=== PATIENT | male | born 1940 | race Caucasian/White ===

== ENCOUNTER 2019-06-28 20:23 | Emergency (ER) | payer MEDICARE ==
[2019-06-28 21:33] VITALS: BP 148/77; PULSE 88; RESP 18; TEMP 96.8
[2019-06-28 21:43] LABS: Appearance,Urine Cloudy (Clear); Bilirubin,Urine Negative (Negative); Blood,Urine Large (Negative); Budding Yeast,Urine Many /hpf; Color,Urine Light Red; Glucose,Urine (UA) 4+ (Negative); Leukocyte Esterase,Urine Large (Negative); Nitrite,Urine Negative (Negative); PH, Urine 5.5 (5.0-8.0); Protein,Urine 1+ (Negative); RBC,Urine >182 /hpf (0-5); Specific Gravity,Urine 1.023 (1.001-1.035); Urobilinogen,Urine <2.0 mg/dL (<2.0); WBC,Urine >182 /hpf (0-5)
--- NOTE | 2019-06-28 21:52 | ED ---
General Adult HPI - General Chief complaint: Urogenital Stated complaint: Urogenital Time Seen by Provider: 06/28/19 20:39 Source: patient Mode of arrival: ambulatory Limitations: no limitations - History of Present Illness Initial comments: Patient is a 78-year-old male presenting to the emergency department with a chief complaint of catheter malfunction. Patient is a day 30 status post prostate surgery. Patient reports he was at his urologist office yesterday when he had a replacement of his Kraft catheter. Patient also reports the found a mild UTI and treated him with IV and antibiotics. Patient reports he had no urine output since last night. Patient reports decreased pain in his penis and bladder region. Patient reports he noticed small amount to urinary dripping around the catheter out of the urethra. Patient reports he has not been drinking any fluids in order to prevent further urine production. Patient denies any fever or chills. Patient reports typically the urine is red in color. - Related Data Allergies Allergy/AdvReac Type Severity Reaction Status Date / Time No Known Allergies Allergy Verified 06/28/19 20:30 Review of Systems ROS Statement: Those systems with pertinent positive or pertinent negative responses have been documented in the HPI. ROS Other: All systems not noted in ROS Statement are negative. Past Medical History Past Medical History: Prostate Disorder History of Any Multi-Drug Resistant Organisms: None Reported Past Surgical History: Prostate Surgery Past Psychological History: No Psychological Hx Reported Smoking Status: Never smoker Past Alcohol Use History: None Reported Past Drug Use History: None Reported General Exam Limitations: no limitations General appearance: alert, in distress, obese Head exam: Present: atraumatic, normocephalic, normal inspection Eye exam: Present: normal appearance Pupils: Present: normal accommodation ENT exam: Present: normal exam, mucous membranes moist, normal external ear exam Neck exam: Present: normal inspection, full ROM Respiratory exam: Present: normal lung sounds bilaterally Cardiovascular Exam: Present: normal rhythm, tachycardia, normal heart sounds GI/Abdominal exam: Present: soft, tenderness (Suprapubic tenderness.) exam: Present: normal inspection. Absent: scrotal swelling Extremities exam: Present: normal inspection, full ROM Back exam: Present: normal inspection, full ROM. Absent: CVA tenderness (R), CVA tenderness (L) Neurological exam: Present: alert, oriented X3 Psychiatric exam: Present: normal affect, normal mood Skin exam: Present: warm, intact, normal color Course Vital Signs 10/20/19 10/20/19 20:28 21:32 Temperature 97.6 F 96.8 F L Pulse Rate 116 H 88 Respiratory 30 H 18 Rate Blood Pressure 203/88 148/77 O2 Sat by Pulse 96 98 Oximetry Medical Decision Making - Medical Decision Making Patient is a 78-year-old male presenting to the emergency department with a lobo f complaint of catheter malfunction. On initial evaluation patient was in distress and a lot of pain due to urinary retention. All catheter was removed and patient was able to expel a clot. Patient had a continuous stream of urine. Postvoid bladder scan is indicative of 29 mL of urine. Patient reports his pain went from a 10 to a 1. Patient reports much relief and is ready go home. UA is indicative of hematuria, a little of blood cell leukocyte esterase. Considering the patient had IV antibiotics yesterday for a UTI and is going to see the urologist tomorrow morning, I'm not going to treat the patient for UTI at this time. No replacement of the Kraft catheter necessary at this time. Patient has a ready a scheduled appointment with urology tomorrow. Strict return parameters were thoroughly discussed with patient was understanding and agreeable. Case discussed physician. - Lab Data Lab Results 06/28/19 Range/Units 20:51 Urine Color Light Red Urine Appearance Cloudy (Clear) Urine pH 5.5 (5.0-8.0) Ur Specific [place] 1.023 (1.001-1.035) Urine Protein 1+ H (Negative) Urine Glucose (UA) 4+ H (Negative) Urine Ketones 2+ H (Negative) Urine Blood Large H (Negative) Urine Nitrite Negative (Negative) Urine Bilirubin Negative (Negative) Urine Urobilinogen <2.0 (<2.0) mg/dL Ur Leukocyte Esterase Large H (Negative) Urine RBC >182 H (0-5) /hpf Urine WBC >182 H (0-5) /hpf Urine WBC Clumps Few H (None) /hpf Urine Yeast (Budding) Many H (None) /hpf Disposition Clinical Impression: Kraft catheter problem, Urinary retention Disposition: HOME SELF-CARE Condition: Stable Instructions (If sedation given, give patient instructions): Urinary Tract Infection in Men (ED) Additional Instructions: Please follow-up with your urologist tomorrow. Please return to emergency department if symptoms worsen. Continue drinking water. Is patient prescribed a controlled substance at d/c from ED?: No Referrals: Nonstaff,Physician [Primary Care Provider] - 1-2 days Time of Disposition: 21:52
[2019-06-28 22:00] LABS: Ketones,Urine 2+ (Negative)
== END 2019-06-28 21:57 | disposition home or self-care (01) ==
LOC: EC 20:23
DX: T83.018A Breakdown (mechanical) of other urinary catheter, initial encounter (principal); R33.9 Retention of urine, unspecified; N39.0 Urinary tract infection, site not specified; N42.9 Disorder of prostate, unspecified
CPT/HCPCS: 81001; 99284

== ENCOUNTER 2021-05-14 20:12 | Observation (INO) | payer MEDICARE ==
[2021-05-14] MEDS ORDERED: NITROGLYCERIN OINT 1 INCH/GM PACKET TOPICAL STA ×2 (20:30→21:28)
[2021-05-14] MEDS ORDERED: MORPHINE SULFATE 4 MG/ML SYRINGE IVP STA ×2 (20:30→21:28)
[2021-05-14] MEDS ORDERED: ASPIRIN 81 MG PO STA (20:30)
--- NOTE | 2021-05-14 20:30 | ED ---
Chest Pain HPI - General Chief Complaint: Chest Pain Stated Complaint: chest pain,SOB Time Seen by Provider: 05/14/21 20:29 Source: patient Mode of arrival: ambulatory Limitations: no limitations - History of Present Illness Initial Comments: Lalo is a 80 rolled male presents the ER today for evaluation of stabbing left- sided chest pain. Patient reports he had episodes of pain yesterday and then recurrently throughout the day today. Patient reports the pain is sharp stabbing located in the left chest lateral to the sternum. Pain does not radiate. Patient has chronic shortness of breath which is been present for approximately one month. No acute worsening shortness breath. No lightheadedness or diaphoresis. Patient denies any cardiac history but reports a strong family history of cardiac disease. - Related Data Home Medications Medication Instructions Recorded Confirmed Clobetasol Cream ([place] Strength) 1 applic TOPICAL DIRECTED 05/14/21 05/14/21 Finasteride [Proscar] 5 mg PO HS 05/14/21 05/14/21 Hydrocortisone Cream ([place] Stren 1 applic TOPICAL DIRECTED 05/14/21 05/14/21 Ibuprofen [Motrin Ib] 800 mg PO Q8H PRN 05/14/21 05/14/21 Simvastatin [Zocor] 40 mg PO HS 05/14/21 05/14/21 Tamsulosin HCl [Flomax] 0.4 mg PO HS 05/14/21 05/14/21 Triamcinolone Cream ([place] Streng 1 applic TOPICAL DIRECTED 05/14/21 05/14/21 amLODIPine [Norvasc] 5 mg PO HS 05/14/21 05/14/21 lisinopriL 20 mg PO HS 05/14/21 05/14/21 Allergies Allergy/AdvReac Type Severity Reaction Status Date / Time No Known Allergies Allergy Verified 05/14/21 21:12 Review of Systems ROS Statement: Those systems with pertinent positive or pertinent negative responses have been documented in the HPI. ROS Other: All systems not noted in ROS Statement are negative. EKG Findings - EKG Comments: EKG Findings:: Initial EKG obtained at 2024, rate is 88 rhythm is sinus there is a normal axis and normal intervals, ID 192 QRS 96 QTC [address] depressions laterally no acute ST elevations no evidence of acute infarction. EKG was obtained because patient was expressing chest pain. Repeat EKG obtained at 2122, rate is 80 rhythm is sinus there is normal axis, normal intervals, ID 206 QRS 92 QTc 438 there are no acute ST elevations mild depressions in V4 no elevations no evidence of acute infarction. Past Medical History Past Medical History: Prostate Disorder History of Any Multi-Drug Resistant Organisms: None Reported Past Surgical History: Prostate Surgery Past Psychological History: No Psychological Hx Reported Smoking Status: Never smoker Past Alcohol Use History: None Reported Past Drug Use History: None Reported General Exam - General Exam Comments Initial Comments: Physical Exam GENERAL: Patient is well-developed and well-nourished. Patient is nontoxic and well- hydrated and is in no distress. HENT: Normocephalic, Atraumatic. EYES: PERRL, EOMI PULMONARY: Unlabored respirations. No audible rales rhonchi or wheezing was noted. CARDIOVASCULAR: There is a regular rate and rhythm without any murmurs gallops or rubs. ABDOMEN: Soft and nontender with normal bowel sounds. SKIN: Skin is clear with no lesions or rashes and otherwise unremarkable. : Deferred NEUROLOGIC: Patient is alert and oriented x3. Moving all extremities spontaneously MUSCULOSKELETAL: Normal extremities with adequate strength and full range of motion. No lower extremity swelling or edema. No calf tenderness. PSYCHIATRIC: Normal psychiatric evaluation. Limitations: no limitations Course Vital Signs 05/14/21 05/14/21 05/14/21 20:19 20:52 21:15 Temperature 98.1 F Pulse Rate 87 81 79 Respiratory 18 18 18 Rate Blood Pressure 191/79 178/80 192/84 O2 Sat by Pulse 96 95 97 Oximetry 05/14/21 05/14/21 21:52 23:00 Temperature Pulse Rate 78 75 Respiratory 18 18 Rate Blood Pressure 151/68 143/71 O2 Sat by Pulse Oximetry Chest Pain MDM - MDM Seen and evaluated, history is obtained from the patient, 80-year-old male with sharp left-sided chest pain EKG is nonischemic labs and imaging were obtained and were unremarkable. Patient did have episodes of pain while in the emergency department. Repeat EKG was obtained while patient was having pain and there is no ischemic findings. Patient was noted to have elevated blood pressure during findings of hypertension. Blood pressure normalized with Nitropaste pain seemed to be improved. At this time concerning patient's advanced age, chest pain improving with nitro decision was made to admit the patient to the hospital for further evaluation by cardiology. Patient is agreeable to this plan. Patient was admitted to Dr. Stewart. - VIVI Score Age > 65: (1) Yes 3 or more CAD Risk Factors: (1) Yes Known CAD with more than 50% Stenosis: (0) No Aspirin use within the Past 7 Days: (0) No Elevated Cardiac Markers: (0) No ST Deviation Greater than 0.5mm: (0) No Disposition Clinical Impression: Chest pain, HTN (hypertension) Disposition: ADMITTED IP TO THIS HOSP Condition: Stable Is patient prescribed a controlled substance at d/c from ED?: No
[2021-05-14 21:00] LABS: Basophils # (A) 0.1 k/uL (0-0.2); Basophils % (A) 1 %; Eosinophils # (A) 0.2 k/uL (0-0.7); Eosinophils % (A) 2 %; HCT 43.5 % (39.0-53.0); HGB 15.4 gm/dL (13.0-17.5); Lymphocytes # (A) 4.4 k/uL (1.0-4.8); Lymphocytes % (A) 36 %; MCH 31.4 pg (25.0-35.0); MCHC 35.5 g/dL (31.0-37.0); MCV 88.5 fL (80.0-100.0); Mean Platelet Volume 8.2; Monocytes # (A) 0.7 k/uL (0-1.0); Monocytes % (A) 6 %; Neutrophils # (A) 6.6 k/uL (1.3-7.7); Neutrophils % (A) 53 %; Platelet Count 344 k/uL (150-450); RBC 4.91 m/uL (4.30-5.90); WBC 12.4 k/uL (3.8-10.6)
--- NOTE | 2021-05-14 21:09 | XR ---
EXAMINATION TYPE: XR chest 2V DATE OF EXAM: 05/14/2021 COMPARISON: NONE HISTORY: Chest pain TECHNIQUE: 2 views FINDINGS: Heart and mediastinum are normal. Lungs are clear. Diaphragm is normal. Bony thorax appears normal. IMPRESSION: Normal chest.
[2021-05-14 21:28] LABS: Albumin 4.1 g/dL (3.5-5.0); Calcium 9.9 mg/dL (8.4-10.2); Total Bilirubin 0.4 mg/dL (0.2-1.3); Total Protein 7.4 g/dL (6.3-8.2)
[2021-05-14 21:49] LABS: Potassium 4.6 mmol/L (3.5-5.1)
[2021-05-14 22:01] LABS: INR 0.9 (<1.2); Partial Thromboplastin Time 22.1 sec (22.0-30.0); Prothrombin Time 9.7 sec (9.0-12.0)
[2021-05-14] MEDS ORDERED: NITROGLYCERIN SL TABS 0.4 MG TAB SUBLINGUAL PRN (23:23)
[2021-05-15 00:25] LABS: Glucose,Whole Blood 213 mg/dL (75-99)
[2021-05-15 07:19] LABS: Glucose,Whole Blood 208 mg/dL (75-99)
[2021-05-15] MEDS: ASPIRIN 325 MG TAB PO SCH (08:14)
[2021-05-15 08:55] LABS: Basophils # (A) 0.1 k/uL (0-0.2); Basophils % (A) 1 %; Eosinophils # (A) 0.2 k/uL (0-0.7); Eosinophils % (A) 2 %; HCT 42.8 % (39.0-53.0); HGB 14.2 gm/dL (13.0-17.5); Lymphocytes # (A) 3.1 k/uL (1.0-4.8); Lymphocytes % (A) 30 %; MCH 29.7 pg (25.0-35.0); MCHC 33.2 g/dL (31.0-37.0); MCV 89.5 fL (80.0-100.0); Mean Platelet Volume 7.9; Monocytes # (A) 0.6 k/uL (0-1.0); Monocytes % (A) 6 %; Neutrophils # (A) 6.1 k/uL (1.3-7.7); Neutrophils % (A) 59 %; Platelet Count 286 k/uL (150-450); RBC 4.79 m/uL (4.30-5.90); RDW 13.2 % (11.5-15.5); WBC 10.4 k/uL (3.8-10.6)
[2021-05-15] MEDS ORDERED: FAMOTIDINE 20 MG/2 ML VIAL IV SCH (09:00)
[2021-05-15 09:16] LABS: LDL Cholesterol,Calculated 52.6 mg/dL (0.0-131.0); VLDL Calculation 41.4 mg/dL (5.00-40.00)
[2021-05-15] MEDS: HEPARIN SODIUM,PORCINE/PF 5,000 UNIT/0.5 ML SYRINGE SQ SCH ×2 (09:32→20:37)
[2021-05-15] MEDS: METOPROLOL TARTRATE 25 MG TAB PO SCH ×2 (09:32→20:36)
--- NOTE | 2021-05-15 09:42 | P.CRDCN ---
History of Present Illness Consult date: 05/15/21 History of present illness: This is a 80-year-old gentleman with history of hypertension, hypercholesteremia, and prostate problems, comes here for evaluation of recurrent chest pains. Patient has been having this pain for the last month or so. Yesterday patient was sitting in his chair in the evening, started having some poking and stabbing chest pain in the left side of the chest. Patient subsequently had his dinner and went to bed and continued to have this sharp stabbing chest pains. Patient was subsequently brought to the hospital by her daughter. Patient has been treated with nitroglycerin and morphine with some relief but still having some intermittent pains. EKG showed sinus rhythm without any acute changes. Cardiac enzymes have been negative. In view of his risk factor profile, patient is advised to have stress test and echocardiogram. He'll be scheduled for the Lexiscan stress test and echocardiogram tomorrow. Further recommendations depend upon findings on those tests Review of Systems As per the chart Past Medical History Past Medical History: Prostate Disorder History of Any Multi-Drug Resistant Organisms: None Reported Past Surgical History: Prostate Surgery Past Anesthesia/Blood Transfusion Reactions: No Reported Reaction Past Psychological History: No Psychological Hx Reported Smoking Status: Never smoker Past Alcohol Use History: None Reported Past Drug Use History: None Reported Medications and Allergies Home Medications Medication Instructions Recorded Confirmed Type Clobetasol Cream ([place] Strength) 1 applic TOPICAL DIRECTED 05/14/21 05/14/21 History Finasteride [Proscar] 5 mg PO HS 05/14/21 05/14/21 History Hydrocortisone Cream ([place] Stren 1 applic TOPICAL DIRECTED 05/14/21 05/14/21 History Ibuprofen [Motrin Ib] 800 mg PO Q8H PRN 05/14/21 05/14/21 History Simvastatin [Zocor] 40 mg PO HS 05/14/21 05/14/21 History Tamsulosin HCl [Flomax] 0.4 mg PO HS 05/14/21 05/14/21 History Triamcinolone Cream ([place] Streng 1 applic TOPICAL DIRECTED 05/14/21 05/14/21 History amLODIPine [Norvasc] 5 mg PO HS 05/14/21 05/14/21 History lisinopriL 20 mg PO HS 05/14/21 05/14/21 History Allergies Allergy/AdvReac Type Severity Reaction Status Date / Time No Known Allergies Allergy Verified 05/14/21 21:12 Physical Exam Vitals: Vital Signs Temp Pulse Pulse Resp BP BP Pulse Ox 05/15/21 07:00 97.8 F 72 18 159/68 93 L 05/15/21 02:00 74 05/15/21 00:33 97.9 F 74 18 173/67 97 05/14/21 23:00 75 18 143/71 05/14/21 21:52 78 18 151/68 05/14/21 21:15 79 18 192/84 97 05/14/21 20:52 81 18 178/80 95 05/14/21 20:19 98.1 F 87 18 191/79 96 Intake and Output 05/14/21 05/15/21 05/15/21 22:59 06:59 14:59 Output Total 200 Balance -200 Output: Urine 200 Other: # Voids 3 Weight 107.048 kg 107.048 kg GENERAL EXAM: Patient is alert and oriented and doesn't appear to be in any acute distress HEENT: Normocephalic. Normal reaction of pupils, equal size, normal range of extraocular motion. No erythema or exudates in the throat. NECK: No masses, no nuchal rigidity. CHEST: No chest wall deformity. LUNGS: Equal air entry with no crackles or wheeze. HEART: S1 and S2 normal with no audible mumurs or gallops. Regular rhythm, femorals equal on both sides.. ABDOMEN: No hepatosplenomegaly, normal bowel sounds, no guarding or rigidity. SKIN: No rashes CENTRAL NERVOUS SYSTEM: No focal deficits. EXTREMITIES: No cyanosis, clubbing or edema. Results 05/15/21 08:22 05/14/21 20:43 Cardiac Enzymes 05/14/21 05/14/21 05/14/21 Range/Units 20:43 20:43 23:43 AST 24 (17-59) U/L Troponin I <0.012 <0.012 (0.000-0.034) ng/mL 05/15/21 05/15/21 Range/Units 03:40 08:22 AST (17-59) U/L Troponin I <0.012 <0.012 (0.000-0.034) ng/mL Coagulation 05/14/21 Range/Units 20:43 PT 9.7 (9.0-12.0) sec APTT 22.1 (22.0-30.0) sec Lipids 05/15/21 Range/Units 03:40 Triglycerides 207.0 H (0.0-149.0) mg/dL Cholesterol 141 (0-200) mg/dL HDL Cholesterol 47.0 (40.0-60.0) mg/dL Cholesterol/HDL Ratio 3.00 CBC 05/14/21 05/15/21 Range/Units 20:43 08:22 WBC 12.4 H 10.4 (3.8-10.6) k/uL RBC 4.91 4.79 (4.30-5.90) m/uL Hgb 15.4 14.2 (13.0-17.5) gm/dL Hct 43.5 42.8 (39.0-53.0) % Plt Count 344 286 (150-450) k/uL Comprehensive Metabolic Panel 05/14/21 Range/Units 20:43 Sodium 135 L (137-145) mmol/L Potassium 4.6 (3.5-5.1) mmol/L Chloride 106 (98-107) mmol/L Carbon Dioxide 18 L (22-30) mmol/L BUN 31 H (9-20) mg/dL Creatinine 1.23 (0.66-1.25) mg/dL Glucose 324 H (74-99) mg/dL Calcium 9.9 (8.4-10.2) mg/dL AST 24 (17-59) U/L ALT 21 (4-49) U/L Alkaline Phosphatase 104 (38-126) U/L Total Protein 7.4 (6.3-8.2) g/dL Albumin 4.1 (3.5-5.0) g/dL Current Medications Generic Name Dose Route Start Last Admin Trade Name Freq PRN Reason Stop Dose Admin Aspirin 325 mg 05/15/21 09:00 05/15/21 08:14 Aspirin 325 Mg Tab PO 325 mg DAILY JOSÉ MIGUEL Administration Famotidine 20 mg 05/15/21 09:00 05/15/21 09:32 Famotidine 20 Mg/2 Ml Vial IV 20 mg Q12HR JOSÉ MIGUEL Administration Heparin Sodium (Porcine) 5,000 unit 05/15/21 09:00 05/15/21 09:32 Heparin Sodium,Porcine/Pf 5,000 Unit/0.5 Ml Syringe SQ 5,000 unit Q12HR JOSÉ MIGUEL Administration Metoprolol Tartrate 25 mg 05/15/21 09:00 05/15/21 09:32 Metoprolol Tartrate 25 Mg Tab PO 25 mg BID JOSÉ MIGUEL Administration Nitroglycerin 0.4 mg 05/14/21 23:23 Nitroglycerin Sl Tabs 0.4 Mg Tab SUBLINGUAL Q5M PRN Chest Pain Intake and Output 05/14/21 05/15/21 05/15/21 22:59 06:59 14:59 Output Total 200 Balance -200 Output: Urine 200 Other: # Voids 3 Weight 107.048 kg 107.048 kg 05/15/21 08:22 05/14/21 20:43 EKG Interpretations (text) Sinus rhythm Assessment and Plan (1) Hyperlipidemia Current Visit: Yes Status: Acute Code(s): E78.5 - HYPERLIPIDEMIA, UNSPECIFIED SNOMED Code(s): 95852530 (2) Chest pain Current Visit: Yes Status: Acute Code(s): R07.9 - CHEST PAIN, UNSPECIFIED SNOMED Code(s): 52995427 (3) HTN (hypertension) Current Visit: Yes Status: Acute Code(s): I10 - ESSENTIAL (PRIMARY) HYPERTENSION SNOMED Code(s): 51050498 (4) Prostate hypertrophy Current Visit: Yes Status: Acute Code(s): N40.0 - BENIGN PROSTATIC HYPERPLASIA WITHOUT LOWER URINRY TRACT SYMP SNOMED Code(s): 452385124 Plan: Continue beta blockers and aspirin. Continue rest of the medication. Patient is being scheduled for an echocardiogram and Lexiscan stress test tomorrow. Further recommendations depend upon the findings on those tests
[2021-05-15] MEDS ORDERED: REGADENOSON 0.4 MG/5 ML SYRINGE IV PRN (09:43)
[2021-05-15] MEDS ORDERED: CAFFEINE CITRATE 60 MG/3 ML VIAL IV PRN (09:43)
[2021-05-15] MEDS ORDERED: AMINOPHYLLINE 500 MG/20 ML VIAL IV PRN (09:43)
--- NOTE | 2021-05-15 12:30 | P.HPIM ---
History of Present Illness This is a pleasant 80 years old male with no significant past surgical history. Presents because of chest pain. Patient states that he had chest pain for about one month that comes mainly at night and he thought it is due to gas or indigestion so he ignored it but yesterday it became more severe 7-8/10 while he was sitting in the chair so he got concerned and decided to come to emergency room. He has little dyspnea with it but no coughing. No diarrhea or change in urine habits. No headache or weakness. He denies smoking, alcohol or illicit drugs. He used to smoke a cigar but he quit one year ago She is also diabetic but he uses insulin 70/30 as needed, he states he has insurance but he cannot afford the co-pay for other types of insulin. He takes a dose of 50-80 units based on his Accu-Chek, he takes it 3 times a day. Vital signs stable, blood pressure is elevated 173/67 and 159/68 Labs showing mild leukocytosis of 12.4 K, rest of CBC and BMP is unremarkable. D-dimer is negative at 0.23. Glucose is elevated at 324 on admission. Liver enzymes not elevated. Serial troponin are negative less than 0.012. EKG showing normal sinus rhythm at 80 BPM with no significant ST-T changes. Chest x-ray: No acute processes In the emergency room patient was started on aspirin 325 mg daily. Review of Systems CONSTITUTIONAL: No fever, no malaise, no fatigue. HEENT: No recent visual problems or hearing problems. Denied any sore throat. CARDIOVASCULAR: No orthopnea, PND, no palpitations, no syncope. PULMONARY: No shortness of breath, no cough, no hemoptysis. GASTROINTESTINAL: No diarrhea, no nausea, no vomiting, no abdominal pain. Normoactive bowel sounds. NEUROLOGICAL: No headaches, no weakness, no numbness. HEMATOLOGICAL: Denies any bleeding or petechiae. GENITOURINARY: Denies any burning micturition, frequency, or urgency. MUSCULOSKELETAL/RHEUMATOLOGICAL: Denies any joint pain, swelling, or any muscle pain. ENDOCRINE: Denies any polyuria or polydipsia. Past Medical History Past Medical History: Prostate Disorder History of Any Multi-Drug Resistant Organisms: None Reported Past Surgical History: Prostate Surgery Past Anesthesia/Blood Transfusion Reactions: No Reported Reaction Past Psychological History: No Psychological Hx Reported Smoking Status: Never smoker Past Alcohol Use History: None Reported Past Drug Use History: None Reported Medications and Allergies Home Medications Medication Instructions Recorded Confirmed Type Finasteride [Proscar] 5 mg PO HS 05/14/21 05/14/21 History Ibuprofen [Motrin Ib] 800 mg PO Q8H PRN 05/14/21 05/14/21 History Simvastatin [Zocor] 40 mg PO HS 05/14/21 05/14/21 History Tamsulosin HCl [Flomax] 0.4 mg PO HS 05/14/21 05/14/21 History amLODIPine [Norvasc] 5 mg PO HS 05/14/21 05/14/21 History lisinopriL 20 mg PO HS 05/14/21 05/14/21 History Clobetasol Propionate [Temovate 1 applic TOPICAL Q48H PRN 05/15/21 05/15/21 History 0.05% Oint] Hydrocortisone Cream 1 applic TOPICAL DAILY 05/15/21 05/15/21 History [Hydrocortisone 2.5% Cream] Triamcinolone 0.1% Ointment 1 applic TOPICAL HS 05/15/21 05/15/21 History [Kenalog 0.1% Ointment] Allergies Allergy/AdvReac Type Severity Reaction Status Date / Time No Known Allergies Allergy Verified 05/14/21 21:12 Physical Exam Vitals: Vital Signs Temp Pulse Pulse Resp BP BP Pulse Ox 05/15/21 07:00 97.8 F 72 18 159/68 93 L 05/15/21 02:00 74 05/15/21 00:33 97.9 F 74 18 173/67 97 05/14/21 23:00 75 18 143/71 05/14/21 21:52 78 18 151/68 05/14/21 21:15 79 18 192/84 97 05/14/21 20:52 81 18 178/80 95 05/14/21 20:19 98.1 F 87 18 191/79 96 Intake and Output 05/14/21 05/15/21 05/15/21 22:59 06:59 14:59 Output Total 200 Balance -200 Output: Urine 200 Other: # Voids 3 Weight 107.048 kg 107.048 kg GENERAL: The patient is alert and oriented x3, not in any acute distress. Well developed, well nourished. HEENT: Pupils are round and equally reacting to light. EOMI. No scleral icterus. No conjunctival pallor. Normocephalic, atraumatic. No pharyngeal erythema. No thyromegaly. CARDIOVASCULAR: S1 and S2 present. No murmurs, rubs, or gallops. PULMONARY: Chest is clear to auscultation, no wheezing or crackles. ABDOMEN: Soft, nontender, nondistended, normoactive bowel sounds. No palpable organomegaly. MUSCULOSKELETAL: No joint swelling or deformity. EXTREMITIES: No cyanosis, clubbing, or pedal edema. NEUROLOGICAL: Gross neurological examination did not reveal any focal deficits. SKIN: No rashes. No petechiae Results CBC & Chem 7: 05/15/21 08:22 05/14/21 20:43 Labs: Abnormal Lab Results - Last 24 Hours (Table) 05/14/21 05/14/21 05/15/21 Range/Units 20:43 20:43 00:23 WBC 12.4 H (3.8-10.6) k/uL Sodium 135 L (137-145) mmol/L Carbon Dioxide 18 L (22-30) mmol/L BUN 31 H (9-20) mg/dL Glucose 324 H (74-99) mg/dL POC Glucose (mg/dL) 213 H (75-99) mg/dL 05/15/21 Range/Units 07:17 WBC (3.8-10.6) k/uL Sodium (137-145) mmol/L Carbon Dioxide (22-30) mmol/L BUN (9-20) mg/dL Glucose (74-99) mg/dL POC Glucose (mg/dL) 208 H (75-99) mg/dL Thrombosis Risk Factor Assmnt - Choose All That Apply Any of the Below Risk Factors Present?: Yes Each Factor Represents 1 point: Obesity (BMI >25), Swollen legs (current) Other Risk Factors: Yes Each Risk Factor Represents 3 Points: Age 75 years or older Other congenital or acquired thrombophilia - If yes, enter type in comment: No Thrombosis Risk Factor Assessment Total Risk Factor Score: 5 Thrombosis Risk Factor Assessment Level: High Risk Assessment and Plan Assessment: Chest pain, rule out cardiac causes Hypertension, uncontrolled upon admission Diabetes mellitus with hyperglycemia mild leukocytosis with no current evidence of infection History of BPH status post surgical resection. He is a urologist as an outpatient obesity with BMI of 38.1 Plan: this is a pleasant 80 years old male who presents with chest pain. Cardiology consult, echocardiogram. Start metoprolol Check hemoglobin A1c to resume insulin 70/30, 30 units twice a day insulin sliding scale Labs and medication were reviewed.. Continue same treatment. Continue with symptomatic treatment. Resume home medication. Monitor lytes and vitals. DVT and GI prophylaxis. Further recommendations depends on the clinical course of the patient DVT prophylaxis: Subcutaneous heparin GI Prophylaxis: Pepcid Prognosis is guarded
[2021-05-15 12:49] LABS: Glucose,Whole Blood 304 mg/dL (75-99)
[2021-05-15] MEDS: INSULIN ASPART (NovoLOG) 100 UNIT/ML VIAL SQ SCH ×3 (12:52→22:00)
[2021-05-15 15:27] LABS: Hemoglobin A1C 7.8 % (4.0-6.0)
[2021-05-15 17:34] LABS: Glucose,Whole Blood 276 mg/dL (75-99)
[2021-05-15] MEDS: INSULN ASP PRT/INSULIN ASPART 100 UNIT/ML 10 ML VIAL SQ SCH (17:57)
[2021-05-15] MEDS ORDERED: ACETAMINOPHEN TAB 325 MG TAB PO PRN (19:50)
[2021-05-15] MEDS ORDERED: TAMSULOSIN 0.4 MG CAP.ER.24H PO SCH (21:00)
[2021-05-15] MEDS ORDERED: lisinopriL 20 MG TAB PO SCH (21:00)
[2021-05-15] MEDS ORDERED: ATORVASTATIN 20 MG TAB PO SCH (21:00)
[2021-05-15] MEDS ORDERED: FINASTERIDE 5 MG TAB PO SCH (21:00)
[2021-05-15] MEDS ORDERED: amLODIPine 5 MG TAB PO SCH (21:00)
[2021-05-15 21:24] LABS: Glucose,Whole Blood 213 mg/dL (75-99)
[2021-05-16 07:09] LABS: Glucose,Whole Blood 220 mg/dL (75-99)
[2021-05-16] MEDS ORDERED: FAMOTIDINE 20 MG TAB PO SCH (09:00)
[2021-05-16] MEDS: INSULIN ASPART (NovoLOG) 100 UNIT/ML VIAL SQ SCH ×2 (11:17→13:03)
--- NOTE | 2021-05-16 11:46 | P.PN ---
Subjective Progress Note Date: 05/16/21 HISTORY OF PRESENT ILLNESS: Patient examined this morning. Patient denies shortness of breath. He currently denies chest pain or pressure. He reports having three small episodes of chest pain overnight. Vital signs are stable. PHYSICAL EXAM: VITAL SIGNS: Reviewed. GENERAL: Well-developed in no acute distress. NECK: Supple. No JVD or thyromegaly LUNGS: Respirations even and unlabored. Lungs essentially clear to auscultation bilaterally. HEART: Regular rate and rhythm. S1 and S2 heard. EXTREMITIES: Normal range of motion. No clubbing or cyanosis. Peripheral pulses intact. No lower extremity edema ASSESSMENT: Chest pain Hypertension Hyperlipidemia PLAN: Patient to undergo Lona scan stress test. If negative, he may be discharged home today and follow up outpatient with Dr. Maurer Nurse practitioner note has been reviewed by physician. Signing provider agrees with the documented findings, assessment, and plan of care. Objective - Vital Signs Vital signs: Vital Signs Temp 98.2 F 05/16/21 07:00 Pulse 71 05/16/21 07:00 Resp 18 05/16/21 07:00 BP 126/60 05/16/21 07:00 Pulse Ox 98 05/16/21 07:00 Intake & Output 05/15/21 05/16/21 05/16/21 18:59 06:59 18:59 Output Total 200 Balance -200 Output: Urine 200 Other: # Voids 2 3 - Labs CBC & Chem 7: 05/15/21 08:22 05/14/21 20:43 Labs: Abnormal Lab Results - Last 24 Hours (Table) 05/15/21 05/15/21 05/15/21 Range/Units 08:22 12:48 17:33 POC Glucose (mg/dL) 304 H 276 H (75-99) mg/dL Hemoglobin A1c 7.8 H (4.0-6.0) % 05/15/21 05/16/21 Range/Units 21:22 07:08 POC Glucose (mg/dL) 213 H 220 H (75-99) mg/dL Hemoglobin A1c (4.0-6.0) %
--- NOTE | 2021-05-16 12:40 | ECHOF ---
Referral Reason:Chest pain MEASUREMENTS -------- HEIGHT: 170.2 cm WEIGHT: 107.0 kg BP: RVIDd: 2.9 cm (< 3.3) IVSd: 1.1 cm (0.6 - 1.1) LVIDd: 4.2 cm (3.9 - 5.3) LVPWd: 1.3 cm (0.6 - 1.1) IVSs: 1.5 cm LVIDs: 3.0 cm LVPWs: 1.5 cm LA Diam: 3.7 cm (2.7 - 3.8) LAESV Index (A-L): 28.20 ml/m Ao Diam: 2.6 cm (2.0 - 3.7) AV Cusp: 0.9 cm (1.5 - 2.6) LA Diam: 3.9 cm (2.7 - 3.8) MV EXCURSION: 15.618 mm (> 18.000) MV EF SLOPE: 44 mm/s (70 - 150) EPSS: 0.3 cm MV E Adriel: 0.62 m/s MV DecT: 346 ms MV A Adriel: 1.05 m/s MV E/A Ratio: 0.59 AV maxP.43 mmHg AV meanP.20 mmHg RAP: 5.00 mmHg RVSP: 22.56 mmHg FINDINGS -------- Sinus rhythm. This was a technically good study. The left ventricular size is normal. There is borderline concentric left ventricular hypertrophy. Overall left ventricular systolic function is normal with, an EF between 55 - 60 %. The right ventricle is normal in size. Normal LA size by volume 22+/-6 ml/m2. The right atrial size is normal. There is mild aortic stenosis present. Peak/mean gradient across the Aortic Valve is 27.43mmHg / 12 .20mmHg. Mild mitral regurgitation is present. Mild tricuspid regurgitation present. Right ventricular systolic pressure is normal at < 35 mmHg. There is no pulmonic regurgitation present. There is no pericardial effusion. CONCLUSIONS -------- 1. The left ventricular size is normal. 2. There is borderline concentric left ventricular hypertrophy. 3. Overall left ventricular systolic function is normal with, an EF between 55 - 60 %. 4. The right ventricle is normal in size. 5. Normal LA size by volume 22+/-6 ml/m2. 6. The right atrial size is normal. 7. There is mild aortic stenosis present. 8. Peak/mean gradient across the Aortic Valve is 27.43mmHg / 12.20mmHg. 9. Mild mitral regurgitation is present. 10. Mild tricuspid regurgitation present. 11. There is no pericardial effusion. ILLUSIONIST: Ariana Adrian RDCS
[2021-05-16 12:54] LABS: Glucose,Whole Blood 275 mg/dL (75-99)
[2021-05-16] MEDS: INSULN ASP PRT/INSULIN ASPART 100 UNIT/ML 10 ML VIAL SQ SCH (13:02)
[2021-05-16] MEDS: HEPARIN SODIUM,PORCINE/PF 5,000 UNIT/0.5 ML SYRINGE SQ SCH (13:02)
[2021-05-16] MEDS: METOPROLOL TARTRATE 25 MG TAB PO SCH (13:02)
[2021-05-16] MEDS: ASPIRIN 325 MG TAB PO SCH (13:07)
--- NOTE | 2021-05-16 14:44 | NM ---
EXAMINATION TYPE: NM stress lexiscan cardiolite DATE OF EXAM: 05/16/2021 COMPARISON: NONE HISTORY: Chest pain TECHNIQUE: After the intravenous administration of 10.3 mCi Tc 99m Sestamibi - Cardiolite resting SP ECT images acquired 120 minutes post injection. At peak stress 26.3 mCi Tc 99m Sestamibi - Stress images obtained 60 minutes post injection The patient was stressed with 0.4mg Lexiscan. FINDINGS: No fixed defects are evident. No reversible stress defects on Spect images. Wall motion is normal Ejection fraction is calculated to be 63 %. IMPRESSION: 1. No scintigraphic evidence for reversible ischemia.
[2021-05-16 14:50] VITALS: BP 147/73; PULSE 62; RESP 16; TEMP 97.9
--- NOTE | 2021-05-16 19:53 | P.DS ---
Providers Date of admission: 05/14/21 23:23 Attending physician: Adolfo Stewart MD Consults: 05/14/21 23:23 Consult Physician Urgent Consulting Provider: Benny Maurer Consult Reason/Comments: chest pain Do you want consulting provider notified?: Yes, Notify in am Primary care physician: Physician Nonstaff Hospital Course: Diagnoses: Chest pain, D-dimer is negative at 0.23., cardiac causes were ruled out by negative stress test and automotive electrician helper given for discharge. Possible Musculoskeletal versus gastritis Hypertension, uncontrolled upon admission. Now better controlled Diabetes mellitus with hyperglycemia. Hemoglobin A1c improving at 7.8% mild leukocytosis with no current evidence of infection History of BPH status post surgical resection. He is a urologist as an outpatient obesity with BMI of 38.1 Hospital course This is a pleasant 80 years old male with no significant past surgical history. Presents because of chest pain. Patient states that he had chest pain for about one month that comes mainly at night and he thought it is due to gas or indigestion so he ignored it but on the day of discharge it became more severe 7-8/10 while he was sitting in the chair so he got concerned and decided to come to emergency room. D-dimer was checked and was negative. Chest x-ray showing no acute process. Finisher [employer]ion evaluated the patient and today he had negative stress test and automotive electrician helper cleared her for discharge Patient still has some mild discomfort in his chest and pain which is thought secondary to gastritis versus other. Therefore patient is been discharged on one month of Pepcid and he was instructed to follow up with his primary care doctor in 1 week and he agrees his blood pressure is better controlled with diet and metoprolol 25 mg twice a day Patient denies any other symptoms. No coughing or dyspnea. No dizziness or headache or weakness. No blurred vision. No fever. Problems and management plan were discussed with the patient and he verbalized understanding and acceptance. Also of at bedside and she agrees Patient was found stable and can be discharged home however he needs follow-up as an outpatient. Patient was instructed to follow up with PCP within one week and patient agrees Also patient was instructed to follow up with his automotive electrician helper Dr. Elieser Lamar in 1-2 weeks and he responded make his own appointment Physical exam Gen: patient is a AAOx3, no distress CVS: S1-S2, RRR, no murmur Lungs: B/L CTA, no wheezing Abdomen: soft, no distention, no tenderness, positive bowel sounds Extremity: no leg edema or induration Time spent more than 35 minutes Patient Condition at Discharge: Stable Plan - Discharge Summary Discharge Rx Participant: Yes New Discharge Prescriptions: New Metoprolol Tartrate [Lopressor] 25 mg PO BID #60 tab Insuln Asp Prt/Insulin Aspart [NovoLOG MIX 70-30 VIAL] 35 unit SQ AC-BID ml Famotidine [Pepcid] 20 mg PO DAILY #60 tab Continue Ibuprofen [Motrin Ib] 800 mg PO Q8H PRN PRN Reason: Pain Tamsulosin HCl [Flomax] 0.4 mg PO HS Simvastatin [Zocor] 40 mg PO HS Triamcinolone 0.1% Ointment [Kenalog 0.1% Ointment] 1 applic TOPICAL HS lisinopriL 20 mg PO HS amLODIPine [Norvasc] 5 mg PO HS Finasteride [Proscar] 5 mg PO HS Hydrocortisone Cream [Hydrocortisone 2.5% Cream] 1 applic TOPICAL DAILY Clobetasol Propionate [Temovate 0.05% Oint] 1 applic TOPICAL Q48H PRN PRN Reason: Rash Discharge Medication List Finasteride [Proscar] 5 mg PO HS 05/14/21 [History] Ibuprofen [Motrin Ib] 800 mg PO Q8H PRN 05/14/21 [History] Simvastatin [Zocor] 40 mg PO HS 05/14/21 [History] Tamsulosin HCl [Flomax] 0.4 mg PO HS 05/14/21 [History] amLODIPine [Norvasc] 5 mg PO HS 05/14/21 [History] lisinopriL 20 mg PO HS 05/14/21 [History] Clobetasol Propionate [Temovate 0.05% Oint] 1 applic TOPICAL Q48H PRN 05/15/21 [History] Hydrocortisone Cream [Hydrocortisone 2.5% Cream] 1 applic TOPICAL DAILY 05/15/21 [History] Triamcinolone 0.1% Ointment [Kenalog 0.1% Ointment] 1 applic TOPICAL HS 05/15/21 [History] Famotidine [Pepcid] 20 mg PO DAILY #60 tab 05/16/21 [Rx] Insuln Asp Prt/Insulin Aspart [NovoLOG MIX 70-30 VIAL] 35 unit SQ AC-BID ml 05/16/21 [Rx] Metoprolol Tartrate [Lopressor] 25 mg PO BID #60 tab 05/16/21 [Rx] Follow up Appointment(s)/Referral(s): Nonstaff,Physician [Primary Care Provider] - 1-2 days Benny Maurer MD [STAFF PHYSICIAN] - 2 Weeks (Cardiology office will call you with appointment date and time.) Patient Instructions/Handouts: Angina (DC), Type 2 Diabetes Management for Adults (DC) Activity/Diet/Wound Care/Special Instructions: Heart healthy diet Patient is medically stable for discharge with negative stress test and conditional discharge pending cardiology clearance Activity is restricted until you see your doctor Discharge Disposition: HOME SELF-CARE
--- NOTE | 2021-05-17 08:27 | EST ---
EXERCISE STRESS AGE: 80 SEX: M HT: 5'6" WT: 236 lbs. PROTOCOL: Lexiscan Cardiolite STAGE: NA DURATION OF EXERCISE: NA HEART RATE REST: 65 BLOOD PRESSURE REST: 136/65 MAXIMUM HEART RATE ACHIEVED: 87 MAXIMUM BLOOD PRESSURE: 147/45 85% MPHR: 121 100% MPHR: 142 METS: NA INDICATIONS: Chest pain. CLINICAL INFORMATION: Baseline EKG shows sinus rhythm with poor R-wave progression. Patient was given intravenous Lexiscan as per protocol. Did not have chest pain or diagnostic ST-segment depression. MMODL / IJN: [id number] /
[2021-05-17] MEDS ORDERED: ASPIRIN 81 MG PO SCH (09:00)
== END 2021-05-16 15:34 | disposition home or self-care (01) ==
LOC: EC 20:12 → 6NMEDSUR 23:23
PROVIDERS: ADMIT Internal Medicine; ATTEND Internal Medicine
DX: R07.89 Other chest pain (principal); I10 Essential (primary) hypertension; E11.65 Type 2 diabetes mellitus with hyperglycemia; D72.829 Elevated white blood cell count, unspecified; N40.0 Benign prostatic hyperplasia without lower urinary tract symptoms; E66.9 Obesity, unspecified; Z68.38 Body mass index [BMI] 38.0-38.9, adult; E78.5 Hyperlipidemia, unspecified; E78.00 Pure hypercholesterolemia, unspecified; Z79.899 Other long term (current) drug therapy; Z98.890 Other specified postprocedural states; Z82.49 Family history of ischemic heart disease and other diseases of the circulatory system
CPT/HCPCS: 99285; 96376; 96375; 93005 ×2; 96374; 36415; 93017; 93306; 85379; 83880; 80061; 80053; 83735; 84484 ×2; 85025 ×2; 85610; 85730; 83036; 71046; 78452; G0378 ×3; A9500; S0138; J2270; J2785; J1644 ×2

== ENCOUNTER → 2022-01-01 | Outpatient (CLI) | payer MEDICARE ==
[2022-01-01 18:35] LABS: Basophils # (A) 0.03 X 10*3/uL (0.00-0.10); Basophils % (A) 0.3 %; Eosinophils # (A) 0.14 X 10*3/uL (0.04-0.35); Eosinophils % (A) 1.5 %; HCT 43.8 % (39.6-50.0); HGB 13.8 g/dL (13.0-17.0); Immature Grans, Automated 0.4 %; Lymphocytes # (A) 2.73 X 10*3/uL (0.90-5.00); Lymphocytes % (A) 29.7 %; MCH 29.2 pg (27.0-32.0); MCHC 31.5 g/dL (32.0-37.0); MCV 92.8 fL (80.0-97.0); Mean Platelet Volume 11.1 fL (9.5-12.2); Monocytes # (A) 0.83 X 10*3/uL (0.20-1.00); NRBC Per 100 WBC 0 /100 WBCS (0.0-0.0); Neutrophils # (A) 5.43 X 10*3/uL (1.80-7.70); Neutrophils % (A) 59.1 %; Platelet Count 239 X 10*3/uL (140-440); RBC 4.72 X 10*6/uL (4.40-5.60)
[2022-01-02 01:17] LABS: ALT 24 U/L (10-49); AST 22 U/L (14-35); African American GFR (CKD) 63.7 (60.0-200.0); Albumin 4.3 g/dL (3.8-4.9); Albumin/Globulin Ratio 1.49 (1.60-3.17); Alkaline Phosphatase 62 U/L (41-126); BUN/Creat Ratio 19.03 Ratio (12.00-20.00); Blood Urea Nitrogen 23.6 mg/dL (9.0-27.0); Calcium 9.8 mg/dL (8.7-10.3); Carbon Dioxide 18.7 mmol/L (20.0-27.5); Chloride 103 mmol/L (96-109); Chol/HDL Ratio 2.64 Ratio; Creatine Kinase 147 U/L (35-257); Globulin 2.9 g/dL (1.6-3.3); Glucose 219 mg/dL (70-110); LDL Cholesterol,Calculated 71.7 mg/dL (0.0-131.0); Potassium 3.9 mmol/L (3.5-5.5); Sodium 140 mmol/L (135-145); Total Protein 7.2 g/dL (6.2-8.2); Uric Acid 5.9 mg/dL (3.7-8.7)
== END | disposition home or self-care (01) ==
LOC: LABWHC1 12:12
PROVIDERS: ATTEND Family Medicine
DX: E11.65 Type 2 diabetes mellitus with hyperglycemia (principal); E78.2 Mixed hyperlipidemia
CPT/HCPCS: 36415; 80053; 80061; 82550; 84550; 85025

== ENCOUNTER 2022-01-09 08:48 | Day surgery (SDC) | payer MEDICARE ==
[2022-01-08 09:28] VITALS: BMI 40.0
[~2022-01-09 08:48] MED LIST: ALPRAZolam 0.25 MG TAB PO PRN; ALPRAZolam 0.5 MG TAB PO PRN; ASPIRIN 325 MG TAB PO STA; ATORVASTATIN 80 MG TAB PO STA; HEPARIN SODIUM,PORCINE 10,000 UNIT in SODIUM CHLORIDE 0.9% 1,000 ML IRRIGATION PRN; HEPARIN SODIUM,PORCINE 2,500 UNIT in SODIUM CHLORIDE 0.9% 250 ML IRRIGATION PRN; NITROGLYCERIN SL TABS 0.4 MG TAB SUBLINGUAL PRN
[2022-01-09 09:16] VITALS: RESP 18
[2022-01-09] MEDS ORDERED: SODIUM CHLORIDE 0.9% 1,000 ML in EMPTY BAG 1 BAG IV ONE (10:30)
[2022-01-09] MEDS ORDERED: MIDAZOLAM 2 MG/2 ML VIAL IVP ONE (10:36)
[2022-01-09] MEDS ORDERED: fentaNYL (PF) 50 MCG/ML 2 ML AMP IVP ONE (10:36)
[2022-01-09] MEDS ORDERED: LIDOCAINE 1% INJ 10MG/ML (30 ML VIAL-PF) SQ ONE (10:37)
[2022-01-09] MEDS ORDERED: RX INFO: IV CONTRAST WAS GIVEN 1 EACH MISC MISCELLANE PRN ×2 (11:05→13:33)
[2022-01-09] MEDS ORDERED: SODIUM CHLORIDE 0.9% 1,000 ML IV SCH ×2 (11:15→13:45)
[2022-01-09] MEDS ORDERED: HEPARIN SODIUM 1,000 UN/ML (10ML VL) IV ONE ×2 (11:21→13:10)
[2022-01-09] MEDS ORDERED: IOPAMIDOL-370 125ML BTL INJ ONE ×2 (11:23→13:24)
[2022-01-09] MEDS ORDERED: HEPARIN SODIUM 1,000 UN/ML (10ML VL) ONE (12:48)
[2022-01-09] MEDS ORDERED: fentaNYL (PF) 50 MCG/ML 2 ML AMP ONE (13:06)
[2022-01-09] MEDS ORDERED: LIDOCAINE 1% PF 10 MG/ML (5 ML AMP) SQ ONE (13:08)
[2022-01-09] MEDS ORDERED: fentaNYL (PF) 50 MCG/ML 2 ML AMP IV ONE (13:10)
[2022-01-09] MEDS ORDERED: NITROGLYCERIN 1000MCG/10ML SYRINGE INTRAARTER ONE (13:17)
[2022-01-09] MEDS ORDERED: IV FLUID CONTINUATION 700 ML IV ONE (13:24)
--- NOTE | 2022-01-09 13:39 | P.CARDCATH ---
Date of Procedure: 01/09/22 Description of Procedure: PERCUTANEOUS TRANSLUMINAL CORONARY ANGIOPLASTY CLINICAL INFORMATION: The patient is a 81-year-old male with a known history of hypertension, hyperlipidemia and diabetes who has been complaining of progressive dyspnea on exertion. He underwent cardiac catheterization that showed borderline lesion in the proximal left circumflex, recommendations were made regarding IFR evaluation, the risks and the complications were discussed with the patient who was in full understanding and agreement. PROCEDURE: The patient was brought to the open hearth furnace laborer in the fasting and semi- sedated state after receiving fentanyl and Benadryl, using the guidewire exchange technique 6-[place]izen [place] sheath was exchanged to a new 6-[place]izen [place] sheath. A 6 [place] FL4 guiding catheter was introduced into the system. After cannulating the left main, a Omni Doppler wire was advanced across the lesion and positioned distally. IFR was measured on multiple samples and was above 94%. At that point the guiding catheter and the wire were removed here at the sheath was removed and hemostasis was obtained with deployment of an Angio-Seal. There was no immediate complications. The patient received 5000 units of intravenous heparin. RESULTS: Non hemodynamically significant lesion in the proximal left circumflex. RECOMMENDATIONS: I have recommended continuing medical therapy with the aggressive coronary risk modifications, the findings and recommendations were discussed with the patient and his family and they are in full understanding and agreement. Duration of sedation 22 minutes.
[2022-01-09 16:33] VITALS: BP 162/67; TEMP 97.8
[2022-01-09 17:36] LABS: Glucose,Whole Blood 308 mg/dL (75-99)
[2022-01-09 18:26] VITALS: PULSE 67
[2022-01-09] MEDS ORDERED: METOPROLOL TARTRATE 25 MG TAB PO SCH (21:00)
[2022-01-09] MEDS ORDERED: FINASTERIDE 5 MG TAB PO SCH (21:00)
[2022-01-09] MEDS ORDERED: ATORVASTATIN 20 MG TAB PO SCH (21:00)
[2022-01-09] MEDS ORDERED: PIOGLITAZONE 30 MG TAB PO SCH (21:00)
[2022-01-09] MEDS ORDERED: lisinopriL 20 MG TAB PO SCH (21:00)
[2022-01-09] MEDS ORDERED: TAMSULOSIN 0.4 MG CAP.ER.24H PO SCH (21:00)
[2022-01-09] MEDS ORDERED: ASPIRIN 325 MG TAB PO SCH (21:00)
--- NOTE | 2022-01-10 10:27 | P.CARDCATH ---
Date of Procedure: 01/09/22 Preoperative Diagnosis: Multiple risk factors including hypertension, diabetes and symptoms of exertional shortness of breath. Stress test was negative for ischemia but because of ongoing symptoms patient wanted to have catheterization for definite diagnosis. Postoperative Diagnosis: Diffuse coronary artery disease. Borderline lesion in the circumflex Procedure(s) Performed: Left heart catheterization without left ventriculography Description of Procedure: HISTORY: This is a 81-year-old gentleman with history of hypertension, hypercholesterolemia and diabetes was not experiencing exertional shortness of breath and tightness. stress test was negative but because of ongoing symptoms, patient requested a cardiac cath for definitive diagnosis CONSENT:I have discussed the risks, benefits and alternative therapies for the above-mentioned procedure and for both sedation/analgesia as well as necessary blood product administration, if indicated, as they pertain to this patient. The patient has indicated understanding and acceptance of the risks and procedures discussed. PROCEDURE: Patient was brought to the lab in a fasting state. Patient was given some IV sedation. The right wrist is infiltrated with lidocaine and right radial artery was entered using Seldinger technique. A 6-Zimbabwean catheter was left in place and selective coronary arteriography and left ventriculography was performed. Patient tolerated the procedure well. Patient is waiting to have FFR of the circumflex. No immediate complications were noted and patient was transferred to [facility] in a stable condition Conscious Sedation: Versed 1mg Fentanyl 50 micrograms Duration 16minutes HEMODYNAMICS: The aortic pressure was 160/90. Left ventricle end-diastolic pressure was about 15. There was no gradient across the aortic valve SELECTIVE CORONARY ARTERIOGRAPHY: LEFT MAIN: Normal length and free of occlusive disease. THE LEFT ANTERIOR DESCENDING CORONARY ARTERY: . This is a fair caliber vessel giving rise to good-sized diagonal branch. There is mild 30 to 40% stenosis in the proximal portion. No critical lesions were noted. THE LEFT CIRCUMFLEX AND IS CORONARY ARTERY: This is a good caliber vessel giving rise to good-sized OM branch. There is an eccentric 50-60% lesion in the proximal to mid circumflex. Appears to be critical in one resume THE RIGHT CORONARY ARTERY: This is a small to moderate caliber. There is dampening of the pressures upon engagement of the ostium. There is mild diffuse disease involving the proximal and mid RCA. No critical lesions were noted. Some calcification of the coronary arteries noted LEFT VENTRICULOGRAPHY: . Not performed FINAL IMPRESSION: Diffuse mild coronary artery disease especially involving the proximal LAD and also proximal RCA. There seems to be moderate disease involving mid circumflex. PLAN: Dr. Iglesias is going to do IFR for the circumflex. If the IFR is not significant, maximum medical therapy. We'll continue PROGNOSIS: Fair
== END 2022-01-09 18:25 | disposition home or self-care (01) ==
LOC: CATHCVL 08:48 → 6NMEDSUR 13:24 → CATHCVL 14:08
PROVIDERS: ATTEND Internal Medicine Cardiovascular Disease
DX: I25.10 Atherosclerotic heart disease of native coronary artery without angina pectoris (principal); I25.84 Coronary atherosclerosis due to calcified coronary lesion; I10 Essential (primary) hypertension; E11.9 Type 2 diabetes mellitus without complications; E78.00 Pure hypercholesterolemia, unspecified; E78.5 Hyperlipidemia, unspecified; Z20.822 Contact with and (suspected) exposure to COVID-19; Z82.49 Family history of ischemic heart disease and other diseases of the circulatory system; Z72.0 Tobacco use; Z79.84 Long term (current) use of oral hypoglycemic drugs; Z79.899 Other long term (current) drug therapy
CPT/HCPCS: 93571; 93454; 93458; 87635; C1760; C1887; C1894; C1769 ×3; J2250; J2001 ×2; J3010; J1644; Q9967

== ENCOUNTER 2024-01-09 09:41 | Day surgery (SDC) | payer MEDICARE ==
[~2024-01-09 09:41] MED LIST changes: -ALPRAZolam 0.5 MG TAB PO PRN; -ASPIRIN 325 MG TAB PO STA; -ATORVASTATIN 80 MG TAB PO STA; -HEPARIN SODIUM,PORCINE 10,000 UNIT in SODIUM CHLORIDE 0.9% 1,000 ML IRRIGATION PRN; -HEPARIN SODIUM,PORCINE 2,500 UNIT in SODIUM CHLORIDE 0.9% 250 ML IRRIGATION PRN; +SODIUM CHLORIDE 0.9% 1,000 ML in EMPTY BAG 1 BAG IV SCH
[2024-01-09] MEDS: ASPIRIN 325 MG TAB PO STA (10:06)
[2024-01-09] MEDS: SODIUM CHLORIDE 0.9% 1,000 ML IV ONE (10:07)
[2024-01-09] MEDS: ALPRAZolam 0.5 MG TAB PO PRN (10:20)
[2024-01-09 10:38] LABS: Glucose,Whole Blood 171 mg/dL (70-110)
[2024-01-09] MEDS: METOPROLOL TARTRATE 50 MG TAB PO STA (10:42)
[2024-01-09] MEDS: ISOSORBIDE MONONITRATE ER 30 MG TAB.ER.24H PO STA (10:42)
[2024-01-09] MEDS: lisinopriL 20 MG TAB PO STA (10:42)
[2024-01-09] MEDS: ATORVASTATIN 40 MG TAB PO STA (10:42)
[2024-01-09 10:52] VITALS: RESP 16; TEMP 97.8
[2024-01-09 11:21] LABS: African American GFR (CKD) >90 (>60 ml/min/1.73 sqM); Anion Gap 11 mmol/L; Blood Urea Nitrogen 15 mg/dL (9-20); Calcium 9.3 mg/dL (8.4-10.2); Carbon Dioxide 19 mmol/L (22-30); Chloride 109 mmol/L (98-107); Glucose 177 mg/dL (74-99); Non-African American GFR(CKD) 85 (>60 ml/min/1.73 sqM); Sodium 139 mmol/L (137-145)
[2024-01-09 11:24] LABS: Potassium 4.6 mmol/L (3.5-5.1)
[2024-01-09 11:28] LABS: Basophils # (A) 0.1 k/uL (0-0.2); Basophils % (A) 1 %; Eosinophils # (A) 0.1 k/uL (0-0.7); Eosinophils % (A) 1 %; HCT 43.3 % (39.0-53.0); HGB 14.2 gm/dL (13.0-17.5); Lymphocytes # (A) 2.7 k/uL (1.0-4.8); Lymphocytes % (A) 27 %; MCH 29.8 pg (25.0-35.0); MCHC 32.7 g/dL (31.0-37.0); Mean Platelet Volume 8.7; Monocytes # (A) 0.6 k/uL (0-1.0); Monocytes % (A) 6 %; Neutrophils # (A) 6.3 k/uL (1.3-7.7); Neutrophils % (A) 63 %; Platelet Count 200 k/uL (150-450); RBC 4.76 m/uL (4.30-5.90); RDW 13.1 % (11.5-15.5); WBC 9.9 k/uL (3.8-10.6)
[2024-01-09] MEDS ORDERED: fentaNYL (PF) 50 MCG/ML 2 ML AMP ONE (12:03)
[2024-01-09] MEDS ORDERED: VERAPAMIL 2.5 MG/ML 2 ML AMP ONE (12:03)
[2024-01-09] MEDS ORDERED: LIDOCAINE 1% INJ 10MG/ML (20 ML MDV) ONE (12:03)
[2024-01-09] MEDS ORDERED: HEPARIN SODIUM 1,000 UN/ML (10ML VL) ONE (12:04)
[2024-01-09] MEDS: MIDAZOLAM 2 MG/2 ML VIAL IVP ONE (12:32)
[2024-01-09] MEDS: fentaNYL (PF) 50 MCG/ML 2 ML AMP IVP ONE (12:33)
[2024-01-09] MEDS: LIDOCAINE 1% INJ 10MG/ML (20 ML MDV) SQ ONE (12:34)
[2024-01-09] MEDS: VERAPAMIL SYRINGE (5 MG/10 ML) INTRAARTER ONE (12:38)
[2024-01-09] MEDS: HEPARIN SODIUM 1,000 UN/ML (10ML VL) IVP ONE (12:38)
[2024-01-09] MEDS: NITROGLYCERIN 1000MCG/10ML SYRINGE INTRACORON ONE (13:04)
[2024-01-09] MEDS: IOPAMIDOL-370 100ML BTL INJ ONE ×2 (13:14→13:15)
[2024-01-09] MEDS ORDERED: RX INFO: IV CONTRAST WAS GIVEN 1 EACH MISC MISCELLANE PRN (13:19)
--- NOTE | 2024-01-09 13:24 | P.PCN ---
Date of Procedure: 01/09/24 Operative Findings: CARDIAC CATHETERIZATION PERFORMING PHYSICIAN: Raheel Garcia MD, RPVI PROCEDURE PERFORMED: 1. Selective right and left coronary angiogram 2. FFR of the RCA and LCx and LAD 3. Ultrasound-guided access of the right radial artery INDICATION: Chest discomfort and abnormal myocardial perfusion imaging stress test COMPLICATION: None APPROACH: Right radial artery LEVEL OF SEDATION: Moderate with a sedation length of 44 minutes PROCEDURE DESCRIPTION: After obtaining an informed consent, the patient was brought to cardiac equipment operator/laborer/supervisor. Local anesthesia was performed using lidocaine subcutaneously. The right radial artery was cannulated using Seldinger technique, the guidewire passed easily, following that we advanced a 5-Austrian sheath dilator assembly, the wire and dilator were removed and sheath was flushed. Following that, 2 mg of verapamil along with 5000 unit heparin were given. Selective right and left coronary angiogram using a 6-Austrian JR4 and JL 3.5 catheters. Following that I decided to do Dobler wire measurements of the 3 arteries. For the RCA was JR4 guide catheter. After zeroing the Doppler wire and equalizing between the Doppler wire and guiding catheter the JR4 engage the RCA and subsequently I wired the RCA. The IFR of the RCA came in at 0.99. After that I did use JL 3.5 guiding catheter was shorted. I did equalized between the guide and the wire and subsequently I did wire the LCx with IFR came to be at 0.94. Subsequently the wire was directed toward the LAD was IFR initially came in at 0.77 and subsequently at 1.00. There was a concern about the integrity of the Doppler wire. The procedure was completed there was no complication. SELECTIVE CORONARY ANGIOGRAM: The right coronary artery: Large-caliber vessel and a dominant vessel with mild to moderate disease involving the ostium and intermediate disease involving the midportion Left main: Has mild disease in the mid segment of the left main The left circumflex: Large-caliber vessel nondominant vessel with intermediate to severe disease involving the first obtuse marginal branch The left anterior descending artery: Large-caliber vessel with intermediate to severe disease involving the proximal to midportion CONCLUSION: 1. Intermediate to severe triple-vessel coronary artery disease as described above. 2. Dobler wire measurements of the RCA and LCx and LAD was performed with various numbers with concern about the integrity of the Doppler wire. POSTPROCEDURE MANAGEMENT: Obtain coronary CTA with CT derived FFR
[2024-01-09] MEDS ORDERED: SODIUM CHLORIDE 0.9% 1,000 ML IV SCH (13:30)
[2024-01-09 16:39] VITALS: BP 132/78; PULSE 63
== END 2024-01-09 16:46 | disposition home or self-care (01) ==
LOC: CATHCVL 09:41
PROVIDERS: ATTEND Internal Medicine Interventional Cardiology
DX: I25.10 Atherosclerotic heart disease of native coronary artery without angina pectoris (principal); I10 Essential (primary) hypertension; E78.5 Hyperlipidemia, unspecified; E11.9 Type 2 diabetes mellitus without complications; F17.210 Nicotine dependence, cigarettes, uncomplicated; I35.0 Nonrheumatic aortic (valve) stenosis; Z82.49 Family history of ischemic heart disease and other diseases of the circulatory system; Z79.899 Other long term (current) drug therapy
CPT/HCPCS: 93454; 93799; 76937; 80048; 85025; J2250; J2001; J3010; J1644; Q9967; J2305

== ENCOUNTER 2024-01-22 10:03 | Day surgery (SDC) | payer MEDICARE ==
[2024-01-20 16:32] VITALS: BMI 35.9
[~2024-01-22 10:03] MED LIST changes: +HEPARIN SODIUM,PORCINE (1 ML) 2,500 UNIT in SODIUM CHLORIDE 0.9% 250 ML IRRIGATION PRN; +HEPARIN SODIUM,PORCINE 10,000 UNIT in SODIUM CHLORIDE 0.9% 1,000 ML IRRIGATION PRN; -SODIUM CHLORIDE 0.9% 1,000 ML in EMPTY BAG 1 BAG IV SCH
[2024-01-22] MEDS: ALPRAZolam 0.5 MG TAB PO PRN (10:56)
[2024-01-22 11:01] LABS: Glucose,Whole Blood 163 mg/dL (70-110)
[2024-01-22] MEDS: SODIUM CHLORIDE 0.9% 1,000 ML IV ONE (11:01)
[2024-01-22 11:30] LABS: Basophils % (A) 1 %; Eosinophils # (A) 0.1 k/uL (0-0.7); Eosinophils % (A) 2 %; HCT 40.4 % (39.0-53.0); HGB 13.5 gm/dL (13.0-17.5); Lymphocytes # (A) 2.1 k/uL (1.0-4.8); Lymphocytes % (A) 35 %; MCH 30.7 pg (25.0-35.0); MCHC 33.4 g/dL (31.0-37.0); Mean Platelet Volume 10.1; Monocytes # (A) 0.5 k/uL (0-1.0); Monocytes % (A) 8 %; Neutrophils # (A) 3.2 k/uL (1.3-7.7); Neutrophils % (A) 52 %; Platelet Count 165 k/uL (150-450); RBC 4.39 m/uL (4.30-5.90); RDW 13.8 % (11.5-15.5); WBC 6.1 k/uL (3.8-10.6)
[2024-01-22] MEDS ORDERED: LIDOCAINE 1% INJ 10MG/ML (20 ML MDV) ONE (11:33)
[2024-01-22] MEDS ORDERED: HEPARIN SODIUM 1,000 UN/ML (10ML VL) ONE (11:33)
[2024-01-22] MEDS ORDERED: VERAPAMIL 2.5 MG/ML 2 ML AMP ONE (11:33)
[2024-01-22] MEDS ORDERED: fentaNYL (PF) 50 MCG/ML 2 ML AMP ONE (11:33)
[2024-01-22 11:40] LABS: African American GFR (CKD) >90 (>60 ml/min/1.73 sqM); Anion Gap 6 mmol/L; Blood Urea Nitrogen 18 mg/dL (9-20); Calcium 9.4 mg/dL (8.4-10.2); Carbon Dioxide 23 mmol/L (22-30); Chloride 108 mmol/L (98-107); Glucose 179 mg/dL (74-99); Non-African American GFR(CKD) 80 (>60 ml/min/1.73 sqM); Sodium 137 mmol/L (137-145)
[2024-01-22 11:50] VITALS: RESP 16
[2024-01-22] MEDS: MIDAZOLAM 2 MG/2 ML VIAL IVP ONE ×2 (12:00→12:07)
[2024-01-22] MEDS: fentaNYL (PF) 50 MCG/1 ML VIAL IVP ONE ×2 (12:00→12:32)
[2024-01-22] MEDS: LIDOCAINE 1% INJ 10MG/ML (20 ML MDV) SQ ONE (12:00)
[2024-01-22] MEDS: HEPARIN SODIUM 1,000 UN/ML (10ML VL) IVP ONE ×2 (12:01→12:26)
[2024-01-22] MEDS: VERAPAMIL SYRINGE (5 MG/10 ML) INTRAARTER ONE (12:02)
[2024-01-22] MEDS ORDERED: CLOPIDOGREL 75 MG TAB ONE (12:22)
[2024-01-22] MEDS: CLOPIDOGREL 75 MG TAB PO ONE (12:27)
[2024-01-22] MEDS: NITROGLYCERIN 1000MCG/10ML SYRINGE INTRACORON ONE (12:32)
[2024-01-22] MEDS ORDERED: MORPHINE SULFATE 4 MG/ML SYRINGE ONE (12:49)
[2024-01-22] MEDS: IOPAMIDOL-370 100ML BTL INTRATHECA ONE (12:52)
[2024-01-22] MEDS: MORPHINE SULFATE 4 MG/ML SYRINGE IVP ONE (12:52)
[2024-01-22] MEDS ORDERED: traMADol 50 MG TAB PO PRN (12:56)
[2024-01-22] MEDS ORDERED: FUROSEMIDE PO PRN (12:56)
[2024-01-22] MEDS ORDERED: ACETAMINOPHEN TAB 500 MG TAB PO PRN (12:56)
[2024-01-22] MEDS ORDERED: MAG HYDROX/AL HYDROX/SIMETH 30 ML CUP PO PRN (12:57)
[2024-01-22] MEDS ORDERED: RX INFO: IV CONTRAST WAS GIVEN 1 EACH MISC MISCELLANE PRN (12:57)
[2024-01-22] MEDS ORDERED: ATROPINE SULFATE 0.1 MG/ML 10ML SYRINGE IV PRN (12:57)
[2024-01-22] MEDS ORDERED: ZOLPIDEM 5 MG TAB PO PRN (12:57)
[2024-01-22] MEDS ORDERED: NITROGLYCERIN SL TABS 0.4 MG TAB SUBLINGUAL PRN (12:57)
[2024-01-22] MEDS ORDERED: SODIUM CHLORIDE 0.9% 1,000 ML in EMPTY BAG 1 BAG IV SCH (13:00)
--- NOTE | 2024-01-22 13:01 | P.PCN ---
Date of Procedure: 01/22/24 Operative Findings: PERCUTANEOUS CORONARY INTERVENTION Performing physician Raheel Garcia M.D. Procedure Performed: 1. Successful stenting of the mid RCA using 3.5 x 28 and 3.5 x 15 mm Xience drug-eluting stent with an excellent angiographic results. 2. Adjunctive use of Dobler wire and intravascular imaging 3. Ultrasound-guided access of the right radial artery Indication: The patient is an 83-year-old gentleman who was diagnosed with intermediate to severe triple-vessel coronary artery disease and continues to have chest discomfort. Approach: Right radial artery Complications: None Level of Sedation: Moderate with a sedation length of 44 minutes Procedure Discussion: After obtaining informed consent the patient was brought to the cardiac Ski Base Trimmer. The right radial artery was cannulated using micropuncture technique under ultrasound guidance and micropuncture wire passed easily then I placed a 6 [place] 11 cm sheath at the right radial artery. Subsequently the patient was given 4000's of heparin intravenous and 2 mg of verapamil intra-arterial. After that we decided to proceed with FFR of the right coronary artery with after zeroing the Doppler wire and equalized in between the Doppler wire and guiding catheter the RCA guide engage the right coronary artery. Subsequently I did wired the RCA. I did IFR and that came in to be at 0.88. Subsequently I did intravascular ultrasound and that showed a diameter of the RCA around 3.5 to 4 mm. The artery was not very calcified. Predilatation was performed using 3 mm noncompliant balloon before I deployed 3.5 x 28 mm stent and subsequently I deployed 3.5 x 15 mm stents. Both stents were postdilated using 3.75 x 20 mm no ncompliant balloon. Final angiogram showed good angiographic results and the procedure was completed with no complication Postprocedure Management: 1. Dual antiplatelet therapy using aspirin and Plavix for at least 6-month 2. Aggressive cholesterol control 3. Medical treatment for the LCx and LAD lesions at this point
[2024-01-22] MEDS: SODIUM CHLORIDE 0.9% 1,000 ML in EMPTY BAG 1 BAG IV SCH (13:24)
[2024-01-22] MEDS: ATORVASTATIN 80 MG TAB PO STA (13:24)
[2024-01-22] MEDS: ASPIRIN 325 MG TAB PO STA (13:24)
[2024-01-22 19:18] VITALS: BP 125/69; PULSE 62; TEMP 97.6
[2024-01-22] MEDS ORDERED: TAMSULOSIN 0.4 MG CAP.ER.24H PO SCH (21:00)
[2024-01-22] MEDS ORDERED: ATORVASTATIN 20 MG TAB PO SCH (21:00)
[2024-01-22] MEDS ORDERED: METOPROLOL TARTRATE 50 MG TAB PO SCH (21:00)
[2024-01-23] MEDS ORDERED: ISOSORBIDE MONONITRATE ER 30 MG TAB.ER.24H PO SCH (09:00)
[2024-01-23] MEDS ORDERED: ISOSORBIDE MONONITRATE ER 15 MG TAB PO SCH (09:00)
[2024-01-23] MEDS ORDERED: lisinopriL 20 MG TAB PO SCH (09:00)
[2024-01-23] MEDS ORDERED: FINASTERIDE 5 MG TAB PO SCH (09:00)
[2024-01-23] MEDS ORDERED: CLOPIDOGREL 75 MG TAB PO SCH (09:00)
[2024-01-23] MEDS ORDERED: PIOGLITAZONE 30 MG TAB PO SCH (09:00)
[2024-01-23] MEDS ORDERED: ASPIRIN 81 MG PO SCH (09:00)
[2024-01-26] MEDS ORDERED: PATIENT'S OWN (Semaglutide [Ozempic] 1 MG/0.75 ML Each) SQ SCH (09:00)
== END 2024-01-22 21:42 | disposition home or self-care (01) ==
LOC: CATHCVL 10:03 → 6NMEDSUR 12:50 → CATHCVL 21:42
PROVIDERS: ATTEND Internal Medicine Interventional Cardiology
DX: I25.10 Atherosclerotic heart disease of native coronary artery without angina pectoris (principal); E11.9 Type 2 diabetes mellitus without complications; E78.5 Hyperlipidemia, unspecified; I10 Essential (primary) hypertension; I35.0 Nonrheumatic aortic (valve) stenosis; Z79.84 Long term (current) use of oral hypoglycemic drugs; Z79.899 Other long term (current) drug therapy
CPT/HCPCS: 92978; 93799; 76937; 80048; 85025; C9600; C1887; C1769 ×3; C1894; C1753; C1874 ×2; C1725 ×2; J2250; J2270; J2001; J1644; Q9967; J3010; J2305

== ENCOUNTER 2024-02-14 09:00 | Day surgery (SDC) | payer MEDICARE ==
[2024-02-12 12:07] VITALS: BMI 36.1
[~2024-02-14 09:00] MED LIST changes: +ALPRAZolam 0.5 MG TAB PO PRN; +HEPARIN SODIUM 1,000 UN/ML (10ML VL) ONE; +LIDOCAINE 1% INJ 10MG/ML (20 ML MDV) ONE; +VERAPAMIL 2.5 MG/ML 2 ML AMP ONE
[2024-02-14] MEDS: SODIUM CHLORIDE 0.9% 1,000 ML in EMPTY BAG 1 BAG IV SCH (09:18)
[2024-02-14] MEDS: IV FLUID CONTINUATION 1,000 ML IV ONE (09:30)
[2024-02-14 09:38] LABS: Glucose,Whole Blood 148 mg/dL (70-110)
[2024-02-14] MEDS: hydrALAZINE HCL 20 MG/ML 1 ML VIAL IVP STA (09:49)
[2024-02-14] MEDS ORDERED: LIDOCAINE 1% INJ 10MG/ML (20 ML MDV) ONE (10:50)
[2024-02-14] MEDS ORDERED: HEPARIN SODIUM 1,000 UN/ML (10ML VL) ONE (10:50)
[2024-02-14] MEDS ORDERED: fentaNYL (PF) 50 MCG/ML 2 ML AMP ONE (10:50)
[2024-02-14] MEDS ORDERED: VERAPAMIL 2.5 MG/ML 2 ML AMP ONE (10:50)
[2024-02-14] MEDS: fentaNYL (PF) 50 MCG/1 ML VIAL IVP ONE ×2 (11:20→11:30)
[2024-02-14] MEDS: MIDAZOLAM 2 MG/2 ML VIAL IVP ONE ×2 (11:20→11:30)
[2024-02-14] MEDS: LIDOCAINE 1% INJ 10MG/ML (20 ML MDV) SQ ONE (11:23)
[2024-02-14] MEDS: VERAPAMIL 2.5 MG/ML 4 ML VIAL INTRAARTER ONE (11:23)
[2024-02-14] MEDS: HEPARIN SODIUM 1,000 UN/ML (10ML VL) IVP ONE (11:28)
[2024-02-14] MEDS: NITROGLYCERIN 1000MCG/10ML SYRINGE INTRACORON ONE ×2 (11:58→12:38)
[2024-02-14] MEDS ORDERED: MORPHINE SULFATE 4 MG/ML SYRINGE ONE (12:03)
[2024-02-14] MEDS: MORPHINE SULFATE 4 MG/ML SYRINGE IVP ONE (12:04)
[2024-02-14] MEDS: IOPAMIDOL-370 100ML BTL INJ ONE ×2 (12:07→12:41)
[2024-02-14] MEDS ORDERED: CLOPIDOGREL 75 MG TAB ONE (12:45)
[2024-02-14] MEDS: CLOPIDOGREL 75 MG TAB PO ONE (12:47)
[2024-02-14] MEDS: HEPARIN SODIUM 1,000 UN/ML (10ML VL) IV ONE (12:47)
[2024-02-14] MEDS ORDERED: traMADol 50 MG TAB PO PRN (12:54)
[2024-02-14] MEDS ORDERED: ACETAMINOPHEN TAB 500 MG TAB PO PRN (12:54)
--- NOTE | 2024-02-14 13:02 | P.PCN ---
Date of Procedure: 02/14/24 Operative Findings: PERCUTANEOUS CORONARY INTERVENTION Performing physician Raheel Garcia M.D. Procedure Performed: 1. Successful stenting of the proximal LAD using 3.5 x 15 mm Xience drug-eluting stent with an excellent angiographic results. 2. Successful stending of the proximal LCx using 3.5 x 15 mm Xience drug-eluting stent with an excellent angiographic result. 3. Adjunctive use of intravascular imaging and Doppler wire 4. Ultrasound-guided access of the right radial artery Indication: Symptomatic 83-year-old gentleman with known CAD who continues to be symptomatic in spite of maximized medical treatment Approach: Right radial artery Complications: None Level of Sedation: Moderate with a sedation length of 78 minutes Procedure Discussion: After obtaining informed consent the patient was brought to the cardiac Ship Erector. The right radial artery was cannulated using micropuncture technique under ultrasound guidance and micropuncture wire passed easily then I placed a 6 [place]oc[place] 11 cm sheath at the right radial artery. Subsequently anticoagulation was initiated using heparin with continuous ACT monitoring. Then I did decide to start by doing an IFR of the LCx and LAD. After zeroing the Doppler wire and equalizing between the Doppler wire and guiding catheter we did engage the left main and subsequently did wired the left circumflex using the Doppler wire but the guide was JL 3.5 guide. Subsequently I did an IFR of the left circumflex and that came in to be at 0.84. Subsequently the wire was advanced toward the LAD and I did IFR of the LAD and that came in to be at 0.64. Subsequently we noticed that there was a lesion in the mid shaft of the left main concerning so I decided to do intravascular ultrasound. We did that and that showed minimal luminal area of 7.3 mm with area stenosis of 45%. After that I did wired the LAD using the Doppler wire and the run-through wire as a buster wire. Predilatation was performed using 3 mm balloon and subsequently I did deployed 3.5 x 15 mm stent. The stent was postdilated using 3.75 m noncompliant balloon. Please note that also intravascular ultrasound of the LAD was performed before the angioplasty. Then I decided to intervene on the left circumflex coronary artery. Subsequently the LCx was wired using the Doppler wire and the run- through wire. I did intravascular ultrasound and that showed a diameter around 3.5 mm. Predilatation was performed using 3 mm noncompliant balloon. Attempting advancing 3.5 x 15 mm stent was unsuccessful and I had to change the guide into extra backup support and that was CLS guiding cath reviewed with that I was able to wire the LAD again using the buster wire and working wire including a run-through wire and whisper wire. Subsequently I was able to advance 3.5 x 15 mm stent where the stent was positioned under fluoroscopy guidance and deployed under his nominal pressure. Final angiogram showed excellent angiographic results and the procedure was completed with no complication Postprocedure Management: 1. Successful stenting of the proximal LAD. The LAD still have intermediate lesion appears to be in the range of 50% in the midportion and seems to be a tubular lesion 2. Successful stenting of the proximal left circumflex coronary artery 3. Intermediate disease involving the midshaft of the left main documented to be nonflow limiting by IVUS with a minimal luminal area of 7.3 mm an area stenosis of 45%
[2024-02-14 14:01] LABS: Glucose,Whole Blood 179 mg/dL (70-110)
[2024-02-14 16:28] VITALS: RESP 16
[2024-02-14 17:25] LABS: Glucose,Whole Blood 119 mg/dL (70-110)
[2024-02-14] MEDS: ASPIRIN 325 MG TAB PO STA (17:29)
[2024-02-14] MEDS: ATORVASTATIN 20 MG TAB PO SCH (20:22)
[2024-02-14] MEDS: TAMSULOSIN 0.4 MG CAP.ER.24H PO SCH (20:22)
[2024-02-14] MEDS: METOPROLOL TARTRATE 50 MG TAB PO SCH (20:23)
[2024-02-15 03:00] VITALS: PULSE 68
[2024-02-15] MEDS: CLOPIDOGREL 75 MG TAB PO SCH (08:22)
[2024-02-15] MEDS: ASPIRIN 81 MG PO SCH (08:22)
[2024-02-15] MEDS: ISOSORBIDE MONONITRATE ER 30 MG TAB.ER.24H PO SCH (08:23)
[2024-02-15] MEDS: lisinopriL 20 MG TAB PO SCH (08:23)
[2024-02-15 09:03] VITALS: BP 125/70; TEMP 97.8
[2024-02-15] MEDS: FUROSEMIDE 20 MG TAB PO SCH (10:10)
[2024-02-15] MEDS: FINASTERIDE 5 MG TAB PO SCH (10:11)
[2024-02-15] MEDS: PIOGLITAZONE 30 MG TAB PO SCH (10:11)
--- NOTE | 2024-02-15 11:34 | P.DS ---
Providers Attending physician: Raheel Garcia Primary care physician: [facility] Course: The patient is a very pleasant 83-year-old gentleman who was admitted to the hospital yesterday and underwent PCI of the LAD and LCx. The patient was seen and evaluated this morning. He is asymptomatic and hemodynamically stable. The right radial site is soft and nontender. The examination is remarkable for stable vital signs with regular rate and rhythm and clear breathing sounds bilaterally and no edema was noted The patient is going to be discharged home on dual antiplatelet therapy along with statin and I will follow-up with the patient next week in the office. Plan - Discharge Summary Discharge Rx Participant: No New Discharge Prescriptions: Continue Tamsulosin HCl [Flomax] 0.4 mg PO BID Simvastatin [Zocor] 40 mg PO HS Insuln Asp Prt/Insulin Aspart [NovoLOG MIX 70-30 VIAL] 0 unit SQ AC-BID PRN PRN Reason: Blood Sugar - High Pioglitazone [Actos] 30 mg PO DAILY Acetaminophen [Tylenol] 500 mg PO Q4-6H PRN PRN Reason: Pain traMADol HCL 50 mg PO Q6H PRN PRN Reason: Pain Isosorbide Mononitrate [Isosorbide Mononitrate ER] 30 mg PO DAILY Furosemide [Lasix] 20 mg PO DAILY lisinopriL [Prinivil] 40 mg PO DAILY Finasteride [Proscar] 5 mg PO DAILY Metoprolol Tartrate [Lopressor] 50 mg PO BID Semaglutide [Ozempic] 2 mg SQ CULP Aspirin [Adult Low Dose Aspirin EC] 81 mg PO DAILY Cream (Unknown Name) 1 applic TOPICAL DIRECTED PRN PRN Reason: Dry Skin Clopidogrel [Plavix] 75 mg PO DAILY Discharge Medication List Finasteride [Proscar] 5 mg PO DAILY 05/14/21 [History] Simvastatin [Zocor] 40 mg PO HS 05/14/21 [History] Tamsulosin HCl [Flomax] 0.4 mg PO BID 05/14/21 [History] lisinopriL [Prinivil] 40 mg PO DAILY 05/14/21 [History] Insuln Asp Prt/Insulin Aspart [NovoLOG MIX 70-30 VIAL] 0 unit SQ AC-BID PRN 01/08/22 [History] Pioglitazone [Actos] 30 mg PO DAILY 01/08/22 [History] Acetaminophen [Tylenol] 500 mg PO Q4-6H PRN 01/09/22 [History] Isosorbide Mononitrate [Isosorbide Mononitrate ER] 30 mg PO DAILY 01/07/24 [History] Metoprolol Tartrate [Lopressor] 50 mg PO BID 01/07/24 [History] Semaglutide [Ozempic] 2 mg SQ CULP 01/07/24 [History] traMADol HCL 50 mg PO Q6H PRN 01/07/24 [History] Aspirin [Adult Low Dose Aspirin EC] 81 mg PO DAILY 01/22/24 [History] Clopidogrel [Plavix] 75 mg PO DAILY 02/12/24 [History] Cream (Unknown Name) 1 applic TOPICAL DIRECTED PRN 02/12/24 [History] Furosemide [Lasix] 20 mg PO DAILY 02/12/24 [History] Follow up Appointment(s)/Referral(s): Raheel Garcia MD [STAFF PHYSICIAN] - 1 Week (APPOINTMENT MADE ON February @ 1:45PM ) Patient Instructions/Handouts: Moderate Sedation (DC), After Radial Heart Catheterization (GEN) Activity/Diet/Wound Care/Special Instructions: *NO LIFTING, PUSHING, OR PULLING ANYTHING OVER 5 POUNDS FOR 5 DAYS *NO DRIVING FOR 3 DAYS *YOU CAN REMOVE YOUR DRESSING TOMORROW BUT DO NOT SUBMERSE YOUR PUNCTURE SITE IN WATER FOR A FEW DAYS TO PREVENT INFECTION - SO NO TUB BATHS, POOLS, HOT TUBS, DISHES...ETC *ANY SIGNS OF BLEEDING (HARDNESS, SWELLING, OR EXCESSIVE BLEEDING) HOLD PRESSURE ON YOUR PUNCTURE SITE AND COME TO THE NEAREST EMERGENCY ROOM AND GET YOUR PUNCTURE SITE LOOKED AT - DO NOT DRIVE YOURSELF! EITHER CALL EMS OR HAVE SOMEONE DRIVE YOU!
[2024-02-16] MEDS ORDERED: NON FORMULARY DRUG (Semaglutide [Ozempic] 1 MG/0.75 ML Each) SQ SCH (12:54)
== END 2024-02-15 12:30 | disposition home or self-care (01) ==
LOC: CATHCVL 09:00 → 6NMEDSUR 12:40 → CATHCVL 02-15 12:30
PROVIDERS: ATTEND Internal Medicine Interventional Cardiology
DX: I25.10 Atherosclerotic heart disease of native coronary artery without angina pectoris (principal); I10 Essential (primary) hypertension; E78.5 Hyperlipidemia, unspecified; E11.9 Type 2 diabetes mellitus without complications; Z79.02 Long term (current) use of antithrombotics/antiplatelets; Z79.82 Long term (current) use of aspirin; Z79.84 Long term (current) use of oral hypoglycemic drugs; Z79.899 Other long term (current) drug therapy; Z95.5 Presence of coronary angioplasty implant and graft
CPT/HCPCS: 92978; 92979; 93799; 76937; 99152; 99153; C9600; C1887 ×3; C1769 ×4; C1894; C1725 ×4; C1753; C1874 ×2; S0138; J2250; J2270; J0360; J2001; J1644; Q9967; J3010; J2305

== ENCOUNTER → 2025-01-01 | Outpatient (CLI) | payer MEDICARE ==
--- NOTE | 2025-01-01 11:42 | XR ---
EXAMINATION TYPE: XR ribs RT w pa chest xray DATE OF EXAM: 01/01/2025 11:28 AM INDICATION: Patient age:Male; 84 years old; Reason for study: S23.41XS SPRAIN OF RIBS, SEQUELA; PHH. pain COMPARISON: Chest radiograph 05/14/2021 TECHNIQUE: Frontal and oblique views of the right ribs with additional PA chest radiograph. FINDINGS: The ribs have a normal appearance. No evidence of displaced fracture. Overall, the lungs a re clear. The cardiac silhouette is prominent in size. The remaining osseous structures are intact. IMPRESSION: No acute osseous pathology. [facility], , 01/01/2025 11:39 AM
[2025-01-01 15:16] LABS: Basophils # (A) 0.04 X 10*3/uL (0.00-0.10); Basophils % (A) 0.6 %; Eosinophils # (A) 0.12 X 10*3/uL (0.04-0.35); Eosinophils % (A) 1.8 %; HCT 36.5 % (39.6-50.0); HGB 11.5 g/dL (13.0-17.0); Lymphocytes # (A) 2.56 X 10*3/uL (0.90-5.00); Lymphocytes % (A) 39.4 %; MCH 30.6 pg (27.0-32.0); MCHC 31.5 g/dL (32.0-37.0); MCV 97.1 FL (80.0-97.0); Mean Platelet Volume 10.6 FL (9.5-12.2); Monocytes # (A) 0.54 X 10*3/uL (0.20-1.00); Monocytes % (A) 8.3 %; NRBC Per 100 WBC 0 X 10*3/uL (0.00-0.01); Neutrophils # (A) 3.21 X 10*3/uL (1.80-7.70); Neutrophils % (A) 49.6 %; Platelet Count 237 X 10*3/uL (140-440); RBC 3.76 X 10*6/uL (4.40-5.60); RDW 13.7 % (11.5-14.5); WBC 6.49 X 10*3/uL (4.50-10.00)
[2025-01-01 15:47] LABS: ALT 20 U/L (10-49); AST 22 U/L (14-35); Albumin 4.1 g/dL (3.8-4.9); Albumin/Globulin Ratio 1.41 Ratio (1.60-3.17); Alkaline Phosphatase 75 U/L (41-126); BUN/Creat Ratio 23.77 Ratio (12.00-20.00); Blood Urea Nitrogen 30.9 mg/dL (9.0-27.0); Calcium 9.9 mg/dL (8.7-10.3); Carbon Dioxide 23.4 mmol/L (21.6-31.8); Chloride 104 mmol/L (96-109); Chol/HDL Ratio 2.36 Ratio; Creatine Kinase 89 U/L (35-257); Globulin 2.9 g/dL (1.6-3.3); Glucose 146 mg/dL (70-110); LDL Cholesterol,Calculated 46.5 mg/dL (0.0-131.0); Phosphorus 3.3 mg/dL (2.4-5.1); Potassium 4.6 mmol/L (3.5-5.5); Sodium 140 mmol/L (135-145); T4, Free (Free Thyroxine) 1.46 ng/dL (0.80-1.80); Total Bilirubin 0.5 mg/dL (0.3-1.2); Uric Acid 7.8 mg/dL (3.7-8.7)
[2025-01-01 16:42] LABS: Appearance,Urine Clear (Clear); Bilirubin,Urine Negative (Negative); Blood,Urine Negative (Negative); Color,Urine Yellow (Yellow); Ketones,Urine Negative (Negative); Nitrite,Urine Negative (Negative); PH, Urine 5.5; Urobilinogen,Urine 0.2 E.U./DL
[2025-01-01 16:55] LABS: Bacteria,Urine None Seen (None Seen)
== END | disposition home or self-care (01) ==
LOC: LABWHC1 10:41
PROVIDERS: ATTEND Family Medicine
DX: S23.41XS Sprain of ribs, sequela (principal); E11.65 Type 2 diabetes mellitus with hyperglycemia; E11.22 Type 2 diabetes mellitus with diabetic chronic kidney disease; N18.31 Chronic kidney disease, stage 3a
CPT/HCPCS: 36415; 80053; 80061; 81001; 82550; 83036; 83970; 84100; 84439; 84443; 84550; 85025